=== PATIENT | female | born 1990 | race Caucasian/White ===

== ENCOUNTER 2019-02-18 19:21 | Emergency (ER) | payer MEDICAID ==
[~2019-02-18] VITALS: Ht 154.9 cm; Wt 104.3 kg
--- NOTE | 2019-02-18 19:28 | NUR ---
PT IN WHEELCHAIR TO ER BED 6
[2019-02-18 19:31] VITALS: BP 125/76
--- NOTE | 2019-02-18 19:39 | NUR ---
28Y FEMALE PRESENTED TO ED, C/O LT ANKKLE PAIN X1DAY. PT STATED "I WAS WALKING MY DOG AND WALKED INTO A HOLE ON GROUND AND TWISTED MY ANKLE" PAIN NOW IS 8/10 SHARP THROBBING AND NON-RADIATING. PT TOOK TYLENOL AND APPLIED COLD PACK TO LT ANKLE WITH NO RELIEF. LT ANKLE NOTED SWELLING, TENDER TO TOUCH, PT ABLE TO MOVE TOES, PEDAL PULSE PRESENT. AAOX4, RR EVEN UNLABORED, GCS 15, EDMD MADE AWARE, WILL CONTINUE TO MONITOR CLOSELY. BED LOCKED IN LOWEST POSITION, SIDERAILS UPX1.
[2019-02-18] MEDS ORDERED: KETOROLAC 60 MG/2 ML VIAL IM ONE (19:45)
--- NOTE | 2019-02-18 19:53 | NUR ---
XRAY AT BEDSIDE.
[2019-02-18 21:57] VITALS: BP 127/81
== END 2019-02-18 21:57 | disposition home or self-care (01) ==
LOC: MED 19:21
DX: S93.402A Sprain of unspecified ligament of left ankle, initial encounter (principal); Z90.49 Acquired absence of other specified parts of digestive tract; W18.42XA Slipping, tripping and stumbling without falling due to stepping into hole or opening, initial encounter; Y92.89 Other specified places as the place of occurrence of the external cause; Y93.89 Activity, other specified; Y99.8 Other external cause status
CPT/HCPCS: 73610; 96372; 99283; J1885; Q0092

== ENCOUNTER 2020-06-03 21:14 | Inpatient (IN) | payer OTHER, SELFPAY ==
[~2020-06-03] VITALS: Ht 154.9 cm; Wt 104.3 kg
[2020-06-03 21:15] VITALS: BP 158/61
--- NOTE | 2020-06-03 21:15 | NUR ---
TO TENT AMBULATORY
[2020-06-03] MEDS ORDERED: ALBUTEROL HFA MDI 90 MCG/ACTUATION 8 GM INH ONE (21:25)
[2020-06-03] MEDS ORDERED: ACETAMINOPHEN EXTRA STRENGTH 500 MG TAB PO ONE (21:25)
[2020-06-03] MEDS ORDERED: DEXAMETHASONE 4 MG/ML VIAL IVP ONE (21:25)
[2020-06-03] MEDS ORDERED: NACL 0.9% 1,000 ML IV ONE (21:25)
--- NOTE | 2020-06-03 21:32 | NUR ---
PT TAKEN TO BED 3
--- NOTE | 2020-06-03 21:40 | NUR ---
Note undone in EDM - 06/04/20 at 0500 by SAURAV PATIENT PRESENTS TO ED WITH C/O FEVER AMD (+) COVID . DENIES N/V/D; SKIN IS PINK/WARM/DRY; AAOX4 WITH EVEN AND STEADY GAIT; LUNGS CLEAR BL; HR EVEN AND REGULAR; PT STATES HAS HAD FEVER, CP, SOB, OR COUGH AT THIS TIME; PATIENT STATES PAIN OF 8/10 AT THIS TIME; VSS; PATIENT POSITIONED FOR COMFORT; HOB ELEVATED; BEDRAILS UP X2; BED DOWN. ER MD MADE AWARE OF PT STATUS.
[2020-06-03 22:03] LABS: BASOPHILS % (AUTO) 0.4 % (0.0-2.0); HEMATOCRIT 42.6 % (36-48); HEMOGLOBIN 14.1 g/dL (12.0-16.0); LYMPHOCYTES # (AUTO) 1.7 K/uL (2.5-16.5); LYMPHOCYTES % (AUTO) 18.5 % (20.5-51.1); MEAN CORPUSCULAR HEMOGLOBIN 28 pg (27-31); MEAN CORPUSCULAR HGB CONC 33 g/dL (33-37); MEAN CORPUSCULAR VOLUME 84.5 fL (80-94); MONOCYTES # (AUTO) 0.5 K/uL (0.8-1.0); MONOCYTES % (AUTO) 5.6 % (1.7-9.3); NEUTROPHILS % (AUTO) 75.5 % (42.2-75.2); PLATELET COUNT (AUTO) 271 K/uL (140-450); RED BLOOD CELL COUNT(AUTO) 5.03 MIL/uL (4.20-5.40); RED CELL DISTRIBUTION WIDTH 14.5 % (11.6-13.7); WHITE BLOOD COUNT (AUTO) 9.2 K/uL (4.8-10.8)
[2020-06-03] MEDS ORDERED: cefTRIAXone 1,000 MG VIAL ONE (22:06)
[2020-06-03 22:33] LABS: C-REACTIVE PROTEIN QUANT 22.6 mg/dL (0.0-0.9)
[2020-06-03 22:44] LABS: ALBUMIN 2.5 g/dL (3.4-5.0); ANION GAP 11.5 (8-16); CARBON DIOXIDE 28.3 mmol/L (21-32); CREATININE 1.4 mg/dL (0.6-1.3); POTASSIUM 3.8 mmol/L (3.5-5.1); TOTAL BILIRUBIN 0.4 mg/dL (0.0-1.0)
--- NOTE | 2020-06-03 22:50 | NUR ---
PATIENT PRESENTS TO ED WITH C/O SOB, COVID (+).PT STATES FAMILY MEMBERS HAVE HAD COVID, FATHER HAS RECENTLY BEEN DISCHARGED FROM HOSPITAL, COVID (+) . DENIES N/V/D; SKIN IS PINK/WARM/DRY; AAOX4 WITH EVEN AND STEADY GAIT; LUNGS CLEAR BL; HR EVEN AND REGULAR; PT STATES INTERMITTANT FEVER, CP, SOB, AND COUGH AT THIS TIME; PATIENT STATES PAIN OF 8/10 AT THIS TIME; VSS; PATIENT POSITIONED FOR COMFORT; HOB ELEVATED; BEDRAILS UP X2; BED DOWN. ER MD MADE AWARE OF PT STATUS.
[2020-06-03 22:58] LABS: LACTATE DEHYDROGENASE 395 U/L (81-234)
[2020-06-03] MEDS ORDERED: ACETAMINOPHEN 325 MG TAB PO PRN (23:25)
[2020-06-03] MEDS ORDERED: HYDROcodone/APAP 5/325 MG 1 TAB TAB PO PRN (23:25)
[2020-06-03] MEDS ORDERED: METOCLOPRAMIDE 10 MG/2 ML INJ VIAL IVP PRN (23:25)
[2020-06-04] MEDS: ALBUTEROL SULFATE/IPRATROPIU 3 ML SOL IH SCH ×2 (02:43→13:00)
--- NOTE | 2020-06-04 03:10 | NUR ---
FLU SWAB, JAZMIN, AND UA TO LAB
[2020-06-04 04:26] LABS: APPEARANCE,URINE SL CLOUDY (CLEAR); BILIRUBIN,URINE NEGATIVE (NEGATIVE); BLOOD, URINE 2+ (NEGATIVE); COLOR,URINE YELLOW (YELLOW); LEUKOCYTE ESTERASE ,URINE NEGATIVE (NEGATIVE); NITRITE, URINE NEGATIVE (NEGATIVE); PH,URINE 6.5 (5.0-9.0); UGLUCOSE NEGATIVE (NEGATIVE)
[2020-06-04 05:57] LABS: HYALINE CASTS, URINE 0-10 /LPF (None Seen); YEAST,URINE Few /HPF (None Seen)
[2020-06-04 05:58] LABS: FINE GRANULAR CASTS,URINE 0-10 /LPF (None Seen)
--- NOTE | 2020-06-04 06:00 | NUR ---
RESTING COMFORTABLY AT PRESEMT. RESPIRATIONS ARE REGULAR AND UMLABORED
--- NOTE | 2020-06-04 06:18 | NUR ---
Pt covid positive, unable to give pulmicort due to RT protocol.
--- NOTE | 2020-06-04 07:20 | NUR ---
REPORT RECEIVED FROM RAISA LONDON, TRANSFER OF CARE AT THIS TIME
[2020-06-04] MEDS: BUDESONIDE 0.5 MG/2 ML NEBU INH SCH ×2 (07:30→19:30)
[2020-06-04 08:00] LABS: BASOPHILS % (AUTO) 0.2 % (0.0-2.0); HEMATOCRIT 42.2 % (36-48); HEMOGLOBIN 13.9 g/dL (12.0-16.0); LYMPHOCYTES # (AUTO) 1.6 K/uL (2.5-16.5); LYMPHOCYTES % (AUTO) 20.3 % (20.5-51.1); MEAN CORPUSCULAR HEMOGLOBIN 28 pg (27-31); MEAN CORPUSCULAR HGB CONC 33 g/dL (33-37); MEAN CORPUSCULAR VOLUME 85.4 fL (80-94); MONOCYTES # (AUTO) 0.3 K/uL (0.8-1.0); MONOCYTES % (AUTO) 3.4 % (1.7-9.3); NEUTROPHILS # (AUTO) 5.9 K/uL (1.8-7.7); NEUTROPHILS % (AUTO) 76.1 % (42.2-75.2); PLATELET COUNT (AUTO) 265 K/uL (140-450); RED BLOOD CELL COUNT(AUTO) 4.95 MIL/uL (4.20-5.40); RED CELL DISTRIBUTION WIDTH 14.4 % (11.6-13.7); WHITE BLOOD COUNT (AUTO) 7.8 K/uL (4.8-10.8)
[2020-06-04] MEDS ORDERED: ENOXAPARIN 40 MG/0.4 ML SYR SUBQ SCH (09:00)
--- NOTE | 2020-06-04 09:03 | NUR ---
DR BELTRAN CALLED REGARDING HEPARIN AND LOVENOX BOTH BEING ORDERED, WAITING FOR CALL BACK
--- NOTE | 2020-06-04 09:10 | NUR ---
PATIENT HAS BEEN SCREENED AND CATEGORIZED MODERATE NUTRITION RISK. PATIENT WILL BE SEEN WITHIN 3-5 DAYS OF ADMISSION. 06/06/20 06/08/[address]
--- NOTE | 2020-06-04 09:12 | NUR ---
PER DR HOWARD TO HOLD LOVENOX AND HEPARIN AT THIS TIME UNTIL HE REDOES CALCULATIONS
[2020-06-04] MEDS: DOCUSATE SODIUM 100 MG GELCAP PO SCH (09:20)
[2020-06-04] MEDS ORDERED: BENZONATATE 100 MG CAPLF PO PRN (09:55)
[2020-06-04] MEDS ORDERED: guaiFENesin 20 MG/ML UDC PO PRN (09:55)
[2020-06-04] MEDS ORDERED: remdesivir COMMUNICATION ORDER 1 EA MISC MC PRN (09:55)
--- NOTE | 2020-06-04 10:00 | NUR ---
PT ALERT AND AWAKE, BREATHING EVEN AND UNLABORED. NO DISTRESS NOTED.
[2020-06-04] MEDS: APIXABAN 2.5 MG TAB PO SCH ×2 (10:27→22:08)
--- NOTE | 2020-06-04 10:45 | NUR ---
Consent signed per pt agreeing to administration of FFP. Blood has been type and crossmatched. Blood sent from blood bank. Information on unit of blood checked against patient wristband at bedside by two nurses. All information matches. Patient or responsible republican informed of potential complications associated with blood transfusion. Informed of possible transfusion reaction symptoms. Aware of need to notify nurse at once of itching, shortness of breath, flushing, feeling of impending doom, or other symptoms not previously present. Vital signs taken within 5 minutes prior to initiation of transfusion. RN will remain with patient for first 15 minutes of transfusion at which time vital signs will be re-assessed.
--- NOTE | 2020-06-04 11:00 | NUR ---
NO COMPLAINTS AT THIS TIME, RATE INCREASED TO 150ML/HR
[2020-06-04] MEDS ORDERED: remdesivir CLINICAL MONITORING 1 EA MISC MC PRN (11:05)
[2020-06-04] MEDS ORDERED: REMDESIVIR (EUA) 200 MG in NACL 0.9% 100 ML IV SCH (12:00)
--- NOTE | 2020-06-04 12:00 | NUR ---
PT ALERT AND AWAKE, BREATHING EVEN AND UNLABORED. NO DISTRESS NOTED.
--- NOTE | 2020-06-04 12:22 | NUR ---
SOCIAL WORK NOTE: Patient's Orientation Person Situation Place Time Information Provided By PATIENT Comments SW CONTACTED PATIENT'S CELLPHONE TO COMPLETE ASSESSMENT. Social Problems Specialist, Realtionship and Phone Number JUICE SQUIRES [phone] Healthcare Power of Relations Liaison No Does Patient Have a POLST No Identifying Problems No Social Work Triggers Is A Social Work Consult Needed No Mandate Report Filed No Explanation Of Identifying Problems PATIENT IS A 29-YEAR-OLD FEMALE ADMITTED FOR COVID. PATIENT HAS NO PERTINENT PMHX. Admitted From Home Pre-Admission Level Of Functioning Status Independent/Ambulatory Prior Resources/Services Used In Last 12 Months No Prior Resources Used Prior DME No Prior DME Used Dialysis Comments N/A Living Situation Lives With Family House Patient Had Caregiver No Home Support No Caregiver Issues Financial Issues No Known Financial Issue Referral To The Financial Counselor Needed No Factors/Needs No D/C Needs Identified Pt/Rep Participated In Discharge Plan Yes Patient/Family Agress With Discharge Plan Yes Discharge Plan Comments TENTATIVE DISCHARGE PLAN IS FOR PATIENT TO RETURN HOME. DC Plan Status Initiated
--- NOTE | 2020-06-04 14:00 | NUR ---
PT ALERT AND AWAKE, BREATHING EVEN AND UNLABORED. NO DISTRESS NOTED.
--- NOTE | 2020-06-04 14:12 | NUR ---
ER BED 3 CALLED REGARDING RT MEDICATIONS, STATE THEY WILL COME WHEN AVAILABLE
--- NOTE | 2020-06-04 16:00 | NUR ---
PT ALERT AND AWAKE, BREATHING EVEN AND UNLABORED. NO DISTRESS NOTED.
--- NOTE | 2020-06-04 18:00 | NUR ---
PT ALERT AND AWAKE, BREATHING EVEN AND UNLABORED. NO DISTRESS NOTED.
--- NOTE | 2020-06-04 19:15 | NUR ---
Report received from LITA La for continuation of care.
--- NOTE | 2020-06-04 20:15 | NUR ---
pt provided commode at this time.
--- NOTE | 2020-06-04 22:00 | NUR ---
Pt resting in bed, locked and in lowest position, HOB elevated, side rail x2. VSS.
--- NOTE | 2020-06-04 23:14 | NUR ---
PT MOVED TO CHAIR C
--- NOTE | 2020-06-04 23:15 | NUR ---
Report given to LITA Berrios for transfer of care.
--- NOTE | 2020-06-04 23:17 | NUR ---
RECEIVED REPORT FROM LITA SYED. ASSUMED CARE AT THIS TIME. PT ON 4L VIA NC AT 96%. NO INCREASED WORK OF BREATHING NOTED. WILL CONTINUE TO MONITOR.
--- NOTE | 2020-06-05 00:55 | NUR ---
PT SEEN WITH EYES CLOSED. VISIBLE CHEST RISE AND FALL NOTED. ALL NEEDS MET AT THIS TIME. WILL CONTINUE TO MONITOR.
--- NOTE | 2020-06-05 01:11 | NUR ---
PT REPORTS 8/10 CHEST PAIN DURING COUGH SPELLS. PT MEDICATED WITH PRN NORCO AND TESSALON PERLES.
--- NOTE | 2020-06-05 02:10 | NUR ---
PT REPORTS DECREASED PAIN 5/10 AND MINIMAL COUGH.
--- NOTE | 2020-06-05 07:22 | NUR ---
Assumed care of pt at this time.
[2020-06-05] MEDS: BUDESONIDE 0.5 MG/2 ML NEBU INH SCH ×2 (07:30→19:30)
[2020-06-05] MEDS: ALBUTEROL SULFATE/IPRATROPIU 3 ML SOL IH SCH ×3 (07:41→19:00)
--- NOTE | 2020-06-05 08:00 | NUR ---
PATIENT IS RESTING IN BED AT THIS TIME. RESP EVEN AND UNLABORED. VSS. ALL NEEDS MET AT THIS TIME
[2020-06-05 08:36] LABS: BASOPHILS # (AUTO) 0.1 K/uL (0.00-0.22); BASOPHILS % (AUTO) 0.7 % (0.0-2.0); HEMATOCRIT 41.9 % (36-48); LYMPHOCYTES # (AUTO) 2.5 K/uL (2.5-16.5); LYMPHOCYTES % (AUTO) 15.3 % (20.5-51.1); MEAN CORPUSCULAR HEMOGLOBIN 29 pg (27-31); MEAN CORPUSCULAR HGB CONC 33 g/dL (33-37); MEAN CORPUSCULAR VOLUME 85.6 fL (80-94); MONOCYTES # (AUTO) 0.9 K/uL (0.8-1.0); MONOCYTES % (AUTO) 5.7 % (1.7-9.3); NEUTROPHILS # (AUTO) 12.7 K/uL (1.8-7.7); NEUTROPHILS % (AUTO) 78.3 % (42.2-75.2); PLATELET COUNT (AUTO) 345 K/uL (140-450); RED CELL DISTRIBUTION WIDTH 14.6 % (11.6-13.7); WHITE BLOOD COUNT (AUTO) 16.2 K/uL (4.8-10.8)
[2020-06-05] MEDS: DOCUSATE SODIUM 100 MG GELCAP PO SCH (08:51)
[2020-06-05] MEDS: APIXABAN 2.5 MG TAB PO SCH ×2 (08:51→22:05)
[2020-06-05] MEDS: DEXAMETHASONE 4 MG TAB PO SCH (08:52)
[2020-06-05 09:06] LABS: ALBUMIN 2.6 g/dL (3.4-5.0); ANION GAP 11.8 (8-16); CARBON DIOXIDE 29.1 mmol/L (21-32); CREATININE 0.9 mg/dL (0.6-1.3); POTASSIUM 3.9 mmol/L (3.5-5.1); TOTAL BILIRUBIN 0.3 mg/dL (0.0-1.0)
[2020-06-05] MEDS: REMDESIVIR (EUA) 100 MG in NACL 0.9% 100 ML IV SCH (11:29)
--- NOTE | 2020-06-05 12:00 | NUR ---
PATIENT IS RESTING IN BED AT THIS TIME. RESP EVEN AND UNLABORED. VSS. ALL NEEDS MET AT THIS TIME
--- NOTE | 2020-06-05 14:00 | NUR ---
RT AT BEDSIDE, PATIENT SP02 89% ON RA
--- NOTE | 2020-06-05 17:44 | NUR ---
DR. SMITH PAGED FOR ORDERS. PT REQUESTING SOMETHING FOR ANXIETY.
--- NOTE | 2020-06-05 17:49 | NUR ---
PT REPORTING INCREASED LEVEL OF ANXIETY AT THIS TIME, WOULD LIKE TO TAKE SOMETHING TO HELP RELAX
[2020-06-05] MEDS ORDERED: LORazepam 0.5 MG TAB PO PRN (17:50)
--- NOTE | 2020-06-05 20:00 | NUR ---
PT SEATED UPRIGHT IN BED. O2 SAT AT 99% ON 4L NC. PT TOLERATING WELL. PT REPORTS "FEELING BETTER". NO ACUTE DISTRESS NOTED. WILL CONTINUE TO MONITOR.
--- NOTE | 2020-06-06 00:21 | NUR ---
PT STATES " I'M FEELING BETTER. I WANT TO GO HOME." PT TAKEN OFF OF 4L NC, O2 SAT OF 93% ON RA. PT AMBULATED TO AND O2 SAT MAINTAINED AT 93%. PAGED ON-CALL PHYSICIAN.
[2020-06-06] MEDS: ALBUTEROL SULFATE/IPRATROPIU 3 ML SOL IH SCH ×4 (01:00→19:00)
--- NOTE | 2020-06-06 04:14 | NUR ---
Pt ambulated to bed 5 w/ steady gait.
--- NOTE | 2020-06-06 07:00 | NUR ---
BREATHING TXS NOT GIVEN DUE TO RESPIRATORY PROTOCOL FOR COVID POSITIVE PTS.
--- NOTE | 2020-06-06 07:23 | NUR ---
Report given to LITA La for transfer of care.
[2020-06-06] MEDS: BUDESONIDE 0.5 MG/2 ML NEBU INH SCH ×2 (07:30→19:30)
[2020-06-06 07:46] LABS: EOSINOPHILS % (AUTO) 0.1 % (0.0-4.0); HEMATOCRIT 39.3 % (36-48); HEMOGLOBIN 12.9 g/dL (12.0-16.0); LYMPHOCYTES # (AUTO) 2.4 K/uL (2.5-16.5); MEAN CORPUSCULAR HEMOGLOBIN 28 pg (27-31); MEAN CORPUSCULAR HGB CONC 33 g/dL (33-37); MEAN CORPUSCULAR VOLUME 85.2 fL (80-94); MONOCYTES # (AUTO) 0.8 K/uL (0.8-1.0); MONOCYTES % (AUTO) 7.3 % (1.7-9.3); NEUTROPHILS # (AUTO) 8.2 K/uL (1.8-7.7); NEUTROPHILS % (AUTO) 71.6 % (42.2-75.2); PLATELET COUNT (AUTO) 349 K/uL (140-450); RED BLOOD CELL COUNT(AUTO) 4.62 MIL/uL (4.20-5.40); RED CELL DISTRIBUTION WIDTH 14.5 % (11.6-13.7); WHITE BLOOD COUNT (AUTO) 11.4 K/uL (4.8-10.8)
--- NOTE | 2020-06-06 07:55 | NUR ---
PT ALERT AND AWAKE, BREATHING EVEN AND UNLABORED. NO DISTRESS NOTED. PT REMAINS ON MONITOR, VS STABLE.
[2020-06-06 08:15] LABS: ALBUMIN 2.5 g/dL (3.4-5.0); ANION GAP 11.5 (8-16); CARBON DIOXIDE 30.9 mmol/L (21-32); CREATININE 0.8 mg/dL (0.6-1.3); POTASSIUM 3.4 mmol/L (3.5-5.1); TOTAL BILIRUBIN 0.4 mg/dL (0.0-1.0)
[2020-06-06] MEDS: DEXAMETHASONE 4 MG TAB PO SCH (08:16)
[2020-06-06] MEDS: DOCUSATE SODIUM 100 MG GELCAP PO SCH (08:16)
[2020-06-06] MEDS: APIXABAN 2.5 MG TAB PO SCH (08:16)
--- NOTE | 2020-06-06 09:14 | NUR ---
PAGED ADMITTING DR REGARDING PT STATING THAT SHE WANTS TO GO HOME, SPO2 95% ON RA, BREATHING UNLABORED. RR 20.
--- NOTE | 2020-06-06 09:31 | NUR ---
PER DR HOWARD WILL SEE PT SOON, TO GIVE REMDESIVIR MED SOON POSSIBLE, PHARMACY STATES THEY WILL BRING MED
[2020-06-06] MEDS ORDERED: POTASSIUM CHLORIDE 10 MEQ TABER PO SCH (10:00)
--- NOTE | 2020-06-06 10:10 | NUR ---
DR HOWARD EXAMINING PT AT BEDSIDE
[2020-06-06] MEDS: REMDESIVIR (EUA) 100 MG in NACL 0.9% 100 ML IV SCH (10:16)
[2020-06-06] MEDS ORDERED: ALBU6.7H IH (10:30)
[2020-06-06] MEDS ORDERED: DEC4 PO (10:30)
[2020-06-06] MEDS ORDERED: APIX2.5 PO (10:30)
[2020-06-06] MEDS ORDERED: BENZ100C6 PO (10:30)
[2020-06-06] MEDS ORDERED: ACET-1182 PO (10:30)
[2020-06-06] MEDS ORDERED: ROB PO (10:30)
[2020-06-06 10:37] VITALS: BP 138/88
[2020-06-06 10:46] VITALS: BP 135/86
--- NOTE | 2020-06-06 11:35 | NUR ---
IV D/C and 2x2 gauze placed to IV site. Bleeding controlled
--- NOTE | 2020-06-06 11:39 | NUR ---
Patient discharged home with VSS
[2020-06-07] MEDS: ALBUTEROL SULFATE/IPRATROPIU 3 ML SOL IH SCH ×2 (01:00→06:18)
--- NOTE | 2020-06-07 02:27 | NUR ---
PT COVID POSITIVE HHN NOT GIVEN DUE TO COVID 19 PROTOCOL.
[2020-06-07] MEDS: BUDESONIDE 0.5 MG/2 ML NEBU INH SCH (06:18)
== END 2020-06-06 11:40 | disposition home or self-care (01) | DRG 137 ==
LOC: MED 21:14 → MMU 23:30
PROVIDERS: ADMIT Hospitalist; ATTEND Hospitalist
PROC: XW13325 Transfusion of Convalescent Plasma (Nonautologous) into Peripheral Vein, Percutaneous Approach, New Technology Group 5 (ICD-10-PCS; 2020-06-04)
PROC: XW033E5 Introduction of Remdesivir Anti-infective into Peripheral Vein, Percutaneous Approach, New Technology Group 5 (ICD-10-PCS; principal; 2020-06-06)
DX: U07.1 COVID-19 (principal); Z90.49 Acquired absence of other specified parts of digestive tract; Z82.49 Family history of ischemic heart disease and other diseases of the circulatory system; J12.89 Other viral pneumonia; J96.01 Acute respiratory failure with hypoxia; R74.01 Elevation of levels of liver transaminase levels; N17.9 Acute kidney failure, unspecified; E44.1 Mild protein-calorie malnutrition; R65.10 Systemic inflammatory response syndrome (SIRS) of non-infectious origin without acute organ dysfunction
CPT/HCPCS: 36415; 36600; 71045; 80053; 81001; 82550; 82728; 82803; 83036; 83605; 83615; 83880; 84484; 84703; 85025; 85379; 85384; 85610; 85730; 86140; 86900; 86901; 86920; 87040; 87086; 87804; 94640; 94664; 96365; 99291; J0696; J1100; J7626; P9017

== ENCOUNTER 2021-10-02 20:36 | Emergency (ER) | payer OTHER ==
[~2021-10-02] VITALS: Ht 154.9 cm; Wt 108.0 kg
[~2021-10-02 20:36] MED LIST: ACET-1182 PO; ALBU6.7H IH; APIX2.5 PO; BENZ100C6 PO; DEC4 PO; ROB PO
[2021-10-02 20:49] VITALS: BP 136/76
--- NOTE | 2021-10-02 20:57 | NUR ---
PT SENT TO LOBBY
[2021-10-02 21:47] LABS: BASOPHILS # (AUTO) 0.1 K/uL (0.00-0.22); BASOPHILS % (AUTO) 0.6 % (0.0-2.0); EOSINOPHILS # (AUTO) 0.2 K/uL (0-0.4); EOSINOPHILS % (AUTO) 2.3 % (0.0-4.0); HEMATOCRIT 44.3 % (36-48); HEMOGLOBIN 14.7 g/dL (12.0-16.0); LYMPHOCYTES # (AUTO) 3.8 K/uL (2.5-16.5); LYMPHOCYTES % (AUTO) 35.2 % (20.5-51.1); MEAN CORPUSCULAR HEMOGLOBIN 28 pg (27-31); MEAN CORPUSCULAR HGB CONC 33 g/dL (33-37); MEAN CORPUSCULAR VOLUME 84.8 fL (80-94); MONOCYTES # (AUTO) 0.6 K/uL (0.8-1.0); MONOCYTES % (AUTO) 5.1 % (1.7-9.3); NEUTROPHILS # (AUTO) 6.1 K/uL (1.8-7.7); NEUTROPHILS % (AUTO) 56.8 % (42.2-75.2); PLATELET COUNT (AUTO) 300 K/uL (140-450); RED BLOOD CELL COUNT(AUTO) 5.22 MIL/uL (4.20-5.40); RED CELL DISTRIBUTION WIDTH 15.1 % (11.6-13.7); WHITE BLOOD COUNT (AUTO) 10.7 K/uL (4.8-10.8)
[2021-10-02 21:57] LABS: ANION GAP 9.3 (8-16); CARBON DIOXIDE 28.6 mmol/L (21-32); CREATININE 0.8 mg/dL (0.6-1.3); POTASSIUM 3.9 mmol/L (3.5-5.1)
[2021-10-02 22:03] LABS: APPEARANCE,URINE CLEAR (CLEAR); BILIRUBIN,URINE NEGATIVE (NEGATIVE); BLOOD, URINE 1+ (NEGATIVE); COLOR,URINE YELLOW (YELLOW); LEUKOCYTE ESTERASE ,URINE NEGATIVE (NEGATIVE); NITRITE, URINE NEGATIVE (NEGATIVE); UGLUCOSE NEGATIVE (NEGATIVE)
[2021-10-02 22:08] LABS: ALBUMIN 3.2 g/dL (3.4-5.0); TOTAL BILIRUBIN 0.4 mg/dL (0.0-1.0)
[2021-10-02 22:10] LABS: RBC,URINE 0-5 /HPF (0-5); WBC,URINE NONE SEEN /HPF (0-5)
--- NOTE | 2021-10-02 22:34 | NUR ---
pt ambulated to bed 06
--- NOTE | 2021-10-02 22:55 | NUR ---
30/F BIB SELF C/O 03/17 SHARP RLQ PAIN X 11AM. PATIENT SHE STARTED TAKING AZITHROMYCIN TODAY AND THATS WHEN PAIN STARTED. PATIENT STATED THAT SHE HAS A COLD AND HAS BEEN RUNNING FEVERS. DENIES N/V/D/SOB/CP. PMHX DENIES MED DENIES NKA
--- NOTE | 2021-10-02 23:02 | NUR ---
patient ambulated to the bathroom for urine preg
--- NOTE | 2021-10-02 23:11 | NUR ---
pt to CT via w/c
--- NOTE | 2021-10-02 23:25 | NUR ---
PATIENT RTURNED FROM CT VIA W/C
--- NOTE | 2021-10-03 00:29 | NUR ---
MD SAMUEL AT BEDSIDE ASSESSING PATIENT
[2021-10-03] MEDS ORDERED: ALBUTEROL HFA MDI 90 MCG/ACTUATION 8 GM INH ONE (00:40)
--- NOTE | 2021-10-03 01:20 | NUR ---
MDI AND SPACER EDUCATION GIVEN TO PT ORDERED BY MD. POSITIVE FEEDBACK FROM PT. DOCTOR WAS NOTIFIED.
[2021-10-03 01:30] VITALS: BP 125/58
--- NOTE | 2021-10-03 01:30 | NUR ---
Patient discharged with v/s stable. Written and verbal after care instructions given and explained. Patient verbalized understanding. Ambulatory with steady gait. Advised to follow up with PMD.
--- NOTE | 2021-10-03 01:49 | NUR ---
The patient's care was reviewed and supervised by Agustina Vyas RN.
== END 2021-10-03 01:30 | disposition home or self-care (01) ==
LOC: MED 20:36
DX: I88.0 Nonspecific mesenteric lymphadenitis (principal); Z79.899 Other long term (current) drug therapy
CPT/HCPCS: 36415; 74176; 80053; 81001; 81025; 83690; 85025; 99285; J3535

== ENCOUNTER 2022-02-13 05:47 | Emergency (ER) | payer OTHER ==
--- NOTE | 2022-02-13 05:57 | NUR ---
CALLED TO TRIAGE, NO ANSWER
--- NOTE | 2022-02-13 06:15 | NUR ---
CALLED TO TRIAGE, NO ANSWER
--- NOTE | 2022-02-13 06:33 | NUR ---
CALLED TO TRIAGE, NO ANSWER. LWBS
[2022-02-13] MEDS ORDERED: IBUP-2213 PO (22:30)
== END 2022-02-13 05:57 | disposition left against medical advice (07) ==
LOC: MED 05:47
DX: M54.9 Dorsalgia, unspecified (principal); Z53.21 Procedure and treatment not carried out due to patient leaving prior to being seen by health care provider

== ENCOUNTER 2022-02-13 15:55 | Emergency (ER) | payer OTHER ==
[~2022-02-13] VITALS: Ht 154.9 cm; Wt 109.3 kg
[2022-02-13 16:01] VITALS: BP 113/69
--- NOTE | 2022-02-13 17:17 | NUR ---
C/O FLANK PAIN AND PAIN DURING URINATION X 2 WEEKS. PT WAS DIAGNOSED WITH UTI 2 WEEKS AGO AND DID NOT TAKE HER CIPRO MEDICATION BECAUSE HER METFORMIN WAS MAKING HER NAUSEOUS. DENIES FEVER, N/V/D. PMH: DM2 NKDA
[2022-02-13] MEDS ORDERED: KETOROLAC 15 MG/ML VIAL IM ONE (18:30)
[2022-02-13 18:38] LABS: BASOPHILS % (AUTO) 0.4 % (0.0-2.0); EOSINOPHILS # (AUTO) 0.2 K/uL (0-0.4); EOSINOPHILS % (AUTO) 2.6 % (0.0-4.0); HEMATOCRIT 43.1 % (36-48); HEMOGLOBIN 14.3 g/dL (12.0-16.0); LYMPHOCYTES # (AUTO) 3.2 K/uL (2.5-16.5); LYMPHOCYTES % (AUTO) 38.3 % (20.5-51.1); MEAN CORPUSCULAR HEMOGLOBIN 28 pg (27-31); MEAN CORPUSCULAR HGB CONC 33 g/dL (33-37); MEAN CORPUSCULAR VOLUME 85.1 fL (80-94); MONOCYTES # (AUTO) 0.5 K/uL (0.8-1.0); MONOCYTES % (AUTO) 5.9 % (1.7-9.3); NEUTROPHILS # (AUTO) 4.4 K/uL (1.8-7.7); NEUTROPHILS % (AUTO) 52.8 % (42.2-75.2); PLATELET COUNT (AUTO) 275 K/uL (140-450); RED BLOOD CELL COUNT(AUTO) 5.07 MIL/uL (4.20-5.40); RED CELL DISTRIBUTION WIDTH 14.6 % (11.6-13.7); WHITE BLOOD COUNT (AUTO) 8.4 K/uL (4.8-10.8)
--- NOTE | 2022-02-13 19:15 | NUR ---
REPORT GIVEN BY NIKKIE LONDON, ASSUME CARE OF PT IN BED 3 BY RAVIN LODNON, PT C/O RIGHT FLANK PAIN X 2WEEKS, DENIES ANY OTHER DISCOMFORT OR PAIN. PT DX WITH UTI BUT STOP TAKING CIPRO DUE TO MAKING HER NOT FEEL WELL, PT STATES SHE STOP TAKING ALL HER MEDICATIONS, HX- DM, HTN.
--- NOTE | 2022-02-13 19:15 | NUR ---
Pt report given to [place]. Transfer of care at this time.
[2022-02-13 19:22] LABS: ALBUMIN 3.1 g/dL (3.4-5.0); ANION GAP 11.7 (8-16); CARBON DIOXIDE 26.8 mmol/L (21-32); POTASSIUM 3.5 mmol/L (3.5-5.1); TOTAL BILIRUBIN 0.8 mg/dL (0.0-1.0)
--- NOTE | 2022-02-13 20:11 | NUR ---
Patient taken to CT scan via gurney.
[2022-02-13 21:13] LABS: APPEARANCE,URINE CLEAR (CLEAR); BILIRUBIN,URINE NEGATIVE (NEGATIVE); BLOOD, URINE TRACE-I (NEGATIVE); COLOR,URINE YELLOW (YELLOW); LEUKOCYTE ESTERASE ,URINE NEGATIVE (NEGATIVE); NITRITE, URINE NEGATIVE (NEGATIVE); PH,URINE 6.5 (5.0-9.0); UGLUCOSE NEGATIVE (NEGATIVE)
[2022-02-13 21:29] LABS: OTHER CASTS, URINE None Seen /LPF (None Seen); RBC,URINE 0-5 /HPF (0-5); WBC,URINE 0-5 /HPF (0-5)
[2022-02-13] MEDS ORDERED: ONDANSETRON 4 MG/2 ML VIAL IVP ONE (21:35)
[2022-02-13] MEDS ORDERED: MORPHINE SULFATE 4 MG/ML SYR IVP ONE (21:35)
[2022-02-13] MEDS ORDERED: IBUP-2213 PO (22:30)
[2022-02-13 23:07] VITALS: BP 116/70
--- NOTE | 2022-02-13 23:09 | NUR ---
Patient discharged with v/s stable. Written and verbal after care instructions given and explained. Patient verbalized understanding. Ambulatory with steady gait. All questions addressed prior to discharge. Advised to follow up with PMD.
== END 2022-02-13 23:09 | disposition home or self-care (01) ==
LOC: MED 15:55
DX: S39.012A Strain of muscle, fascia and tendon of lower back, initial encounter (principal); R10.9 Unspecified abdominal pain; E11.9 Type 2 diabetes mellitus without complications; I10 Essential (primary) hypertension; Z79.4 Long term (current) use of insulin; Z79.899 Other long term (current) drug therapy; Z90.49 Acquired absence of other specified parts of digestive tract; Z98.890 Other specified postprocedural states; X58.XXXA Exposure to other specified factors, initial encounter; Y93.89 Activity, other specified; Y92.89 Other specified places as the place of occurrence of the external cause; Y99.8 Other external cause status
CPT/HCPCS: 36415; 74176; 80053; 81001; 81025; 83690; 84702; 85025; 96372; 96374; 96375; 99285; J1885; J2270; J2405

== ENCOUNTER 2022-04-11 19:33 | Emergency (ER) | payer OTHER ==
[~2022-04-11] VITALS: Ht 154.9 cm; Wt 108.9 kg
[~2022-04-11 19:33] MED LIST changes: -ALBU6.7H IH; +ALBU6.7H6 IH; +IBUP-2213 PO
[2022-04-11 19:55] VITALS: BP 125/52
--- NOTE | 2022-04-11 19:58 | NUR ---
to lobby a/w bed ambulatory
--- NOTE | 2022-04-11 20:21 | NUR ---
SEEN AND EXAMINED BY ROLANDO
[2022-04-11] MEDS ORDERED: KETOROLAC 30 MG/ML VIAL IM ONE (20:25)
[2022-04-11] MEDS ORDERED: KETOROLAC 30 MG/ML VIAL ONE (20:32)
--- NOTE | 2022-04-11 20:39 | NUR ---
PT MEDICATED AND ASSESSMENT COMPLETE AT THIS TIME.
[2022-04-11 20:57] LABS: BASOPHILS # (AUTO) 0.1 K/uL (0.00-0.22); BASOPHILS % (AUTO) 0.7 % (0.0-2.0); EOSINOPHILS # (AUTO) 0.2 K/uL (0-0.4); EOSINOPHILS % (AUTO) 1.9 % (0.0-4.0); HEMATOCRIT 42.4 % (36-48); HEMOGLOBIN 14.3 g/dL (12.0-16.0); LYMPHOCYTES % (AUTO) 38.5 % (20.5-51.1); MEAN CORPUSCULAR HEMOGLOBIN 29 pg (27-31); MEAN CORPUSCULAR HGB CONC 34 g/dL (33-37); MEAN CORPUSCULAR VOLUME 85.5 fL (80-94); MONOCYTES # (AUTO) 0.6 K/uL (0.8-1.0); MONOCYTES % (AUTO) 6.2 % (1.7-9.3); NEUTROPHILS # (AUTO) 5.5 K/uL (1.8-7.7); NEUTROPHILS % (AUTO) 52.7 % (42.2-75.2); PLATELET COUNT (AUTO) 273 K/uL (140-450); RED BLOOD CELL COUNT(AUTO) 4.96 MIL/uL (4.20-5.40); RED CELL DISTRIBUTION WIDTH 14.4 % (11.6-13.7); WHITE BLOOD COUNT (AUTO) 10.4 K/uL (4.8-10.8)
[2022-04-11 21:18] LABS: CARBON DIOXIDE 27.9 mmol/L (21-32); CREATININE 0.9 mg/dL (0.6-1.3); TOTAL BILIRUBIN 0.4 mg/dL (0.0-1.0)
[2022-04-11 21:33] LABS: ANION GAP 11.1 (8-16)
--- NOTE | 2022-04-11 22:56 | NUR ---
DR. MUÑOZ WITH PT FOR EXAM
--- NOTE | 2022-04-11 23:00 | NUR ---
ALL DISCHRAGE INSTRUCTIONS AND MEDICATION ADMINISTRATION PROVIDED TO PT BY DR. MUÑOZ. RX OF TRAMADOL, MOTRIN, AND TYLENOL PROVIDED.
[2022-04-11] MEDS ORDERED: TRAM-748 PO (23:03)
[2022-04-11] MEDS ORDERED: ACET-10509 PO (23:03)
[2022-04-11] MEDS ORDERED: IBUP-2213 PO (23:03)
== END 2022-04-11 23:00 | disposition home or self-care (01) ==
LOC: MED 19:33
DX: R10.2 Pelvic and perineal pain (principal)
CPT/HCPCS: 36415; 76770; 76856; 80053; 81002; 81025; 85025; 96372; 99284; J1885; Q0092

== ENCOUNTER 2023-06-30 20:24 | Emergency (ER) | payer OTHER ==
[~2023-06-30] VITALS: Ht 154.9 cm; Wt 110.2 kg
[~2023-06-30 20:24] MED LIST changes: +ACET-10509 PO; +TRAM-748 PO
[2023-06-30 21:00] VITALS: BP 140/90; PULSE 85; RESP 17; TEMP 98.5; O2SAT 97
[2023-06-30] MEDS ORDERED: KETOROLAC 30 MG/ML VIAL IM ONE (22:55)
[2023-06-30] MEDS ORDERED: ONDANSETRON 4 MG ODT PO ONE (22:55)
[2023-07-01 00:05] LABS: BASOPHILS # (AUTO) 0.1 K/uL (0.00-0.22); BASOPHILS % (AUTO) 0.6 % (0.0-2.0); EOSINOPHILS # (AUTO) 0.2 K/uL (0-0.4); EOSINOPHILS % (AUTO) 1.7 % (0.0-4.0); HEMATOCRIT 44.7 % (36-48); HEMOGLOBIN 14.9 g/dL (12.0-16.0); LYMPHOCYTES # (AUTO) 3.8 K/uL (2.5-16.5); LYMPHOCYTES % (AUTO) 35.6 % (20.5-51.1); MEAN CORPUSCULAR HEMOGLOBIN 28 pg (27-31); MEAN CORPUSCULAR HGB CONC 33 g/dL (33-37); MEAN CORPUSCULAR VOLUME 85.2 fL (80-94); MONOCYTES # (AUTO) 0.6 K/uL (0.8-1.0); MONOCYTES % (AUTO) 5.3 % (1.7-9.3); NEUTROPHILS # (AUTO) 6.1 K/uL (1.8-7.7); NEUTROPHILS % (AUTO) 56.8 % (42.2-75.2); PLATELET COUNT (AUTO) 312 K/uL (140-450); RED BLOOD CELL COUNT(AUTO) 5.24 MIL/uL (4.20-5.40); RED CELL DISTRIBUTION WIDTH 14.9 % (11.6-13.7); WHITE BLOOD COUNT (AUTO) 10.7 K/uL (4.8-10.8)
[2023-07-01 00:21] LABS: APPEARANCE,URINE CLEAR (CLEAR); BILIRUBIN,URINE NEGATIVE (NEGATIVE); BLOOD, URINE TRACE-I (NEGATIVE); COLOR,URINE YELLOW (YELLOW); LEUKOCYTE ESTERASE ,URINE NEGATIVE (NEGATIVE); NITRITE, URINE NEGATIVE (NEGATIVE); PH,URINE 6.5 (5.0-9.0); PROTEIN,URINE 3+ (NEGATIVE); UGLUCOSE NEGATIVE (NEGATIVE); UROBILINOGEN,URINE 0.2 EU/dL (0.2 - 1)
[2023-07-01 00:30] LABS: ANION GAP 10.6 (8-16); BILIRUBIN,DIRECT 0.1 mg/dL (0.0-0.3); CALCIUM 9.1 mg/dL (8.5-10.1); POTASSIUM 3.6 mmol/L (3.5-5.1); TOTAL BILIRUBIN 0.3 mg/dL (0.0-1.0); TOTAL PROTEIN, SERUM 8.6 g/dL (6.4-8.2)
[2023-07-01 00:51] LABS: BACTERIA,URINE 10-30 (MOD) /HPF (None Seen); MUCUS,URINE 1+ /LPF (None Seen); RBC,URINE 0-5 /HPF (0-5); SQUAMOUS EPITHELIAL CELL,UR 0-3 (FEW) /LPF (0-3 (FEW)); WBC,URINE 0-5 /HPF (0-5)
[2023-07-01] MEDS ORDERED: ACET-8905 PO (01:01)
[2023-07-01] MEDS ORDERED: ACET-10509 PO (01:01)
[2023-07-01] MEDS ORDERED: IBUP-2213 PO (01:01)
[2023-07-01] MEDS ORDERED: ONDA-188 PO (01:05)
== END 2023-07-01 01:22 | disposition home or self-care (01) ==
LOC: MED 20:24
DX: I88.0 Nonspecific mesenteric lymphadenitis (principal); R82.81 Pyuria; E11.9 Type 2 diabetes mellitus without complications; I10 Essential (primary) hypertension; F03.90 Unspecified dementia, unspecified severity, without behavioral disturbance, psychotic disturbance, mood disturbance, and anxiety; Z90.49 Acquired absence of other specified parts of digestive tract; Z79.899 Other long term (current) drug therapy; Z79.1 Long term (current) use of non-steroidal anti-inflammatories (NSAID); Z79.01 Long term (current) use of anticoagulants
CPT/HCPCS: 36415; 74176; 80053; 80076; 81001; 81025; 83690; 85025; 87086; 96372; 99285; J1885; Q0162

== ENCOUNTER 2024-03-22 12:21 | Emergency (ER) | payer OTHER ==
[~2024-03-22] VITALS: Ht 154.9 cm; Wt 105.0 kg
[~2024-03-22 12:21] MED LIST changes: -ACET-10509 PO; +ACET-8905 PO; +ACET500T99 PO; +ONDA-188 PO
[2024-03-22 12:29] VITALS: BP 148/56; PULSE 61; RESP 14; TEMP 97.2; O2SAT 100
[2024-03-22] MEDS: ACETAMINOPHEN 325 MG TAB PO ONE (13:37)
== END 2024-03-22 14:52 | disposition home or self-care (01) ==
LOC: MED 12:21
DX: S63.616A Unspecified sprain of right little finger, initial encounter (principal); M79.641 Pain in right hand; E11.9 Type 2 diabetes mellitus without complications; I10 Essential (primary) hypertension; F03.90 Unspecified dementia, unspecified severity, without behavioral disturbance, psychotic disturbance, mood disturbance, and anxiety; Z79.899 Other long term (current) drug therapy; Z79.01 Long term (current) use of anticoagulants; W22.8XXA Striking against or struck by other objects, initial encounter; Y92.89 Other specified places as the place of occurrence of the external cause; Y93.89 Activity, other specified; Y99.8 Other external cause status
CPT/HCPCS: 73130; 99283